=== PATIENT | female | born 1950 | race Caucasian/White ===

== ENCOUNTER 2023-07-02 19:42 | Emergency (ER) | payer OTHER, SELFPAY ==
[2023-07-02 19:42] VITALS: BMI 37.5
[2023-07-02 19:47] VITALS: BP 139/75
[2023-07-02 21:06] VITALS: BP 152/91
[2023-07-02 21:24] LABS: % Basophils 0.6 % (0-2); % Eosinophils 1.8 % (0-6); % Immature Granulocytes 1.5 % (0-0.5); % Lymphocytes 32.4 % (20.5-51.1); % Monocytes 8.2 % (1.7-9.3); % Neutrophils 55.5 % (42.2-75.2); Absolute Eosinophils 0.1 10^3/uL (0-0.7); Absolute Immature Granulocytes 0.1 10^3/uL (0-0.05); Absolute Lymphocytes 2.1 10^3/uL (1.2-3.4); Absolute Monocytes 0.5 10^3/uL (0.1-0.6); Absolute Neutrophils 3.7 10^3/uL (1.4-6.5); Hematocrit 34.2 % (37.0-47.0); Hemoglobin 11.4 g/dL (12.0-16.0); Mean Corp Hgb Conc. 33.3 g/dL (33.0-37.0); Mean Corpuscular Hgb 29.9 pg (27.0-31.0); Mean Corpuscular Volume 89.8 fL (81.0-99.0); Mean Platelet Volume 9.5 fL (7.4-10.4); Nucleated Red Blood Cells % 0 %; Platelet Count 337 10^3/uL (130-400); Red Blood Cell Count 3.81 10^6/uL (4.20-5.40); Red Cell Dist. Width 16.5 % (11.5-14.5); White Blood Cell Count 6.6 10^3/uL (4.8-10.8)
[2023-07-02 21:35] LABS: INR 0.94; PT 12.4 Sec (11.4-14.6)
[2023-07-02 21:39] LABS: ALT (SGPT) 21 U/L (0-35); AST (SGOT) 24 U/L (14-36); Albumin 3.8 g/dl (3.5-5.0); Alkaline Phosphatase 125 U/L (38-126); Blood Urea Nitrogen 21 mg/dl (7-17); Calcium 9.2 mg/dl (8.4-10.2); Carbon Dioxide 26 mmol/L (22-30); Chloride 106 mmol/L (98-107); Estimated Creatinine Clearance 62 ml/min; Glucose 100 mg/dl (70-99); Potassium 3.6 mmol/L (3.5-5.1); Sodium 138 mmol/L (135-145); Total Bilirubin 0.5 mg/dl (0.2-1.3); Total Protein 6.4 g/dl (6.3-8.2); eGFR > 60.00
[2023-07-02] MEDS: OMNIPAQUE 50 ML PO (21:51)
[2023-07-02 22:00] VITALS: BP 111/62
[2023-07-02 23:00] VITALS: BP 129/111
[2023-07-03] VITALS: BP 106/69
--- NOTE | 2023-07-03 01:30 | ED.GENMED ---
History of Present Illness
General
Chief Complaint: Abdominal Pain
Time Seen by Provider: 07/02/23 21:18
Travel History
Have you had any contact with someone who has COVID-19?: No
Do you have any symptoms of coronavirus? Fever > 100 degrees, chills, cough, shortness of breath, sore throat, loss of taste or smell, muscle aches, or headache?: No
History of Present Illness
History of Present Illness:
72-year-old female 2 weeks of some vague abdominal discomfort and passing stool via her vagina.
Past History
Past History
ED Past Medical History: Other (IBS)
ED Past Surgical History: Appendectomy and Gynecological
Phy Exam
Physical Exam
Physical Exam:
GENERAL: Alert and oriented in no apparent distress
EYE: Orbits normal.
NECK: Supple
ENT: Pharynx without erythema
CARDIAC: Regular rate and rhythm without any obvious murmurs.
LUNGS: Clear breath sounds,normal
ABDOMEN: Soft, mild suprapubic tenderness. No rebound or guarding no mass or hernia
NEUROLOGICAL: Alert and oriented , grossly non-focal
SKIN: Warm and dry, no rash or lesion, no discoloration, skin intact.
MUSCULOSKELETAL: No edema,no deformity.Good color
PSYCH: Normal and appropriate interaction.
Course
Orders/Labs/Results
Orders:
Orders
07/02/23 21:18
Complete Blood Count/With Diff Urgent
Comprehensive Metabolic Panel Urgent
Prothrombin Time Urgent
07/02/23 21:25
Iohexol [Omnipaque] See Protocol PO NOW STA
07/03/23 00:00
CT Abd/pel W Iv And Oral Contr Urgent
Reason For Exam: Feces from vagina.
07/03/23 01:35
Ciprofloxacin HCl [Cipro] 500 mg PO NOW STA
MetroNIDAZOLE [Flagyl] 500 mg PO NOW STA
Abnormal Lab Results
07/02/23
21:18
RBC 3.81 L 10^6/uL
(4.20-5.40)
Hgb 11.4 L g/dL
(12.0-16.0)
Hct 34.2 L %
(37.0-47.0)
RDW 16.5 H %
(11.5-14.5)
Abs Immat Gran (auto) 0.1 H 10^3/uL
(0-0.05)
Immature Gran % 1.5 H %
(0-0.5)
BUN 21 H mg/dl
(7-17)
Glucose 100 H mg/dl
(70-99)
07/02/23 21:18
07/02/23 21:18
Vital Signs
Initial and Last Documented VS:
Initial Vital Signs
Temp Pulse Resp BP Pulse Ox
98.5 F 88 18 139/75 95
07/02/23 19:47 07/02/23 19:47 07/02/23 19:47 07/02/23 19:47 07/02/23 19:47
Last Documented Vital Signs
Temp Pulse Resp BP Pulse Ox
98.5 F 88 18 152/91 97
07/02/23 19:47 07/02/23 19:47 07/02/23 19:47 07/02/23 21:06 07/02/23 21:06
*Radiology
Radiology exam reviewed: radiology read reviewed (Diverticulitis/Deyanira diverticular abscess. Colonic vaginal fistula)
*Pulse Oximetry
Patient hypoxic: no
*Critical Care Note
Total Time (30-74mins, 75-104mins- exclusive of procedures): Not Applicable
Update Note
Update Note:
Lengthy discussion with the patient and her . They recommended admission for the above CT findings including diverticulitis, peridiverticular abscess, colonic vaginal fistula. They refused to stay in the hospital will take oral antibiotics
and would rather follow-up as an outpatient with their specialist at [place]. I offered to try to admit and transfer to [place] but they do not want to take this approach either. They are fully aware of the risk of sepsis worsening
abscess etc.
ED Attending Note
-
Portions of this chart may have been created with voice recognition software.� Occasional wrong word or��sound alike� substitutions may have occurred due to the inherent limitations of voice recognition software.
Discharge Plan
Departure
Patient Disposition: Against Medical Advice
Date of Disposition: 07/03/23
Time of Disposition: 01:36
Patient with high blood pressure during this ER visit?: Yes
Discharge Problem:
Diverticulitis/diverticular abscess, Colonic vaginal fistula
Instructions: Diverticulitis (DC), Rectovaginal fistula, BLOOD PRESSURE
Prescriptions:
New
ciprofloxacin HCl [Cipro] 500 mg tablet
500 mg PO BID Qty: 20 0RF
metronidazole 500 mg tablet
500 mg PO TID Qty: 30 0RF
Referrals:
Frederic Gonsales DO [Family Provider] - Follow up in 2-3 days
Activity Restrictions/Additional Instructions:
As discussed, I highly recommend you stay in the hospital for IV antibiotics and further opinion on management of your issues. Please understand this could lead to sepsis worsening infection and etc.
We have given you a copy of the disc and CAT scan findings for follow-up
Please return immediately with any worsening symptoms or if you change your mind about admission
Interventions
Interventions:
*Risk Screen - Suicide Last Done: 07/02/23 19:47
*General Assessment Last Done: 07/02/23 19:47
*Neglect/Abuse Screening Last Done: 07/02/23 19:47
ED- Fall Risk Assessment Last Done: 07/02/23 21:13
*ED COVID-19 Vaccine History Last Done: 07/02/23 19:51
AJ-Oxlxru-Cxdiwupobg Assessment Last Done: 07/02/23 21:11
[2023-07-03 02:04] VITALS: BP 123/67
[2023-07-03] MEDS: FLAGYL 500 MG PO (02:09)
[2023-07-03] MEDS: CIPRO 500 MG PO (02:09)
== END 2023-07-03 02:32 | disposition left against medical advice (07) ==
LOC: EMR 19:42
PROVIDERS: EMERGENCY PHYSICIAN Emergency Medicine; FAMILY PHYSICIAN Family Medicine
DX: N82.3 Fistula of vagina to large intestine (principal); K57.20 Diverticulitis of large intestine with perforation and abscess without bleeding; R03.0 Elevated blood-pressure reading, without diagnosis of hypertension
CPT/HCPCS: 99284; 74177; 80053; 85025; 85610; Q9967